=== PATIENT | male | born 1970 | race Caucasian/White ===

== ENCOUNTER 2017-09-18 20:42 | Observation (INO) | payer BC ==
[2017-09-18 23:02] LABS: Cardiac Risk 4.6 (Less than 4.5)
[2017-09-18 23:06] LABS: Troponin I Less than 0.010 ng/mL (< 0.028)
[2017-09-18 23:47] VITALS: BMI 37.2
[2017-09-19] MEDS ORDERED: Acetaminophen 325 MG TAB PO PRN ×2 (00:03→08:20)
[2017-09-19 01:46] LABS: Troponin I Less than 0.010 ng/mL (< 0.028)
[2017-09-19] MEDS ORDERED: Nitroglycerin 2% Ointment 1 INCH/1 GM Packet TOP SCH ×2 (06:00→14:00)
[2017-09-19] MEDS ORDERED: hydrALAZINE 20 MG/ML VIAL SLOW IVP PRN (08:20)
--- NOTE | 2017-09-19 08:35 | ULT ---
ABDOMINAL ULTRASOUND: HISTORY: Epigastric pain. FINDINGS: The liver demonstrates normal echogenicity without focal mass or intrahepatic ductal dilatation. The tail of the pancreas is not well visualized. The remainder of the pancreas is normal. There are mu ltiple mobile, nonshadowing echogenic foci in the gallbladder without gallbladder wall thickening or pericholecystic fluid. The common duct measures 6 mm in diameter. The right kidney is normal. No f ree fluid is seen in the Keyes pouch. IMPRESSION: Probable nonshadowing calculi in the gallbladder. POS: SIDDHARTHA
[2017-09-19] MEDS ORDERED: Aspirin 325 MG TAB PO SCH ×2 (09:00)
[2017-09-19] MEDS ORDERED: Lisinopril/Hydrochlorothiazide 10 mg/12.5 mg Tablet PO SCH (09:00)
[2017-09-19] MEDS ORDERED: Atorvastatin Calcium 10 MG TAB PO SCH (09:00)
[2017-09-19] MEDS ORDERED: Docusate 100 MG CAP PO SCH (09:00)
[2017-09-19] MEDS ORDERED: Enoxaparin Sodium 40 MG/0.4 ML SYRINGE SC SCH (09:00)
[2017-09-19] MEDS ORDERED: Pantoprazole 40 MG VIAL IVP SCH (09:00)
[2017-09-19] MEDS ORDERED: Famotidine 20 MG TAB PO SCH (09:00)
--- NOTE | 2017-09-19 09:30 | HP ---
PRIMARY CARE PHYSICIAN: Baljit Belle M.D. CHIEF COMPLAINT: Chest pain. HISTORY OF PRESENT ILLNESS: Mr. Reid is a pleasant 47-year-old gentleman that has a history of hy pertension and elevated cholesterol. He was in his usual state of health until several days prior to admission. The patient says he has been having chest pain off and on. He describes it as a pressur e or heaviness sensation and it is primarily in the center of his chest in the epigastric region. He says that yesterday it happened all day long. He says that he noticed it when he came home from [facility]. He says that he does not believe he did anything that triggered the pain. He says that he was bruce ving palpitations off and on and felt like his heart was racing and "did not feel right" and this is the main reason that he came into the ER for evaluation. He denies any nausea or vomiting. The pain did not radiate. There was no shortness of breath or diaphoresis. However, his father of a he art attack at age 43 and given this and the symptoms, this is the reason he came to the ER. Currentl y, his symptoms are resolved. REVIEW OF SYSTEMS: CONSTITUTIONAL: There have been no fevers, chills, no night sweats, no weight lo ss. HEENT: No headache, no dizziness, vision, dizziness, no visual changes, no sore throat, rhinorr hea, neck pain, no adenopathy. PULMONARY: No hemoptysis, no cough, no wheezing. CARDIOVASCULAR: A s the history of present illness with the addition of no PND, no orthopnea. No lower extremity edema . GASTROINTESTINAL: He denies any nausea, no vomiting, no reflux symptoms. No change in bowels. G ENITOURINARY: No urinary frequency, hematuria, no hesitancy. NEUROLOGIC: No focal weakness, numbne ss, no seizures. PSYCHIATRIC: No symptoms of anxiety or depression. SKIN AND INTEGUMENT: No skin changes. No rash. PAST MEDICAL HISTORY: Significant for hypertension, elevated cholesterol, and sleep apnea. PAST SURGICAL HISTORY: He has had a tonsillectomy. ALLERGIES: No known drug allergies. SOCIAL HISTORY: He is a nonsmoker. He occasionally drinks. He is . FAMILY HISTORY: Significant for his father who at 43 of heart disease, uncle had heart disease on paternal side. MEDICATIONS: Include simvastatin 20 mg daily, lisinopril/hydrochlorothiazide 10/12.5 once daily. PHYSICAL EXAMINATION: GENERAL: He is alert and oriented. He appears to be in no acute distress. VITAL SIGNS: Blood pressure was 134/66, heart rate 60, respiratory rate is 16, and temperature is 98 .5. HEENT: Pupils are equal, round, and reactive. Extraocular muscles are intact. His sclerae are anic teric. Throat no erythema, no exudates. NECK: No adenopathy, no bruits. LUNGS: Clear. No wheezing, no rales. CARDIOVASCULAR: He has a normal S1 and S2. I do not appreciate an S3 or S4. No murmurs, clicks or rubs. ABDOMEN: Obese, it is soft, it is nontender, nondistended. Positive for bowel sounds. There is no rebound or guarding. EXTREMITIES: There is no clubbing, cyanosis, no edema. NEUROLOGIC: Neurologically, the exam is nonfocal. LABORATORY DATA AND IMAGING DATA: Lab results were reviewed and essentially normal. Troponin, he bruce d two sets, which were negative. His EKG was sinus rhythm, the rate was [address] wave cat nges. ASSESSMENT AND PLAN: This is a 47-year-old gentleman who has a moderate risk for coronary artery dis ease. He is being placed in observation. He will be ruled out. We will get an exercise nuclear str ess test to help further stratify his risks for coronary artery disease. An abdominal ultrasound has already been performed to rule out gallstones as a potential cause and further recommendations will be based on the results of the aforementioned tests.
[2017-09-19 13:18] VITALS: BP 134/68; TEMP 98.4
--- NOTE | 2017-09-19 14:10 | NM ---
CARDIAC SPECT: HISTORY: A 47-year-old male with chest pain, hypertension, and dyslipidemia. TECHNIQUE: A myocardial perfusion scan was performed using the single isotope one day protocol with technetium 9 9m sestamibi, and 9 millicuries was injected intravenously for the rest exam, followed by 28 millicur ies for the stress study. Exercise stress was monitored and interpreted by Dr. Vivas. FINDINGS: Homogeneous tracer distribution is seen in the myocardial segments on stress and rest images without fixed or reversible defects. GATED SPECT LVEF: 54% WALL MOTION EXAM: Normal. IMPRESSION: Normal myocardial perfusion scan. POS: SIDDHARTHA
--- NOTE | 2017-09-19 15:56 | DIS ---
DATE OF ADMISSION: 09/19/2017 DATE OF DISCHARGE: 09/19/2017 PRIMARY CARE PHYSICIAN: Dr. Belle DISCHARGE DISPOSITION: Home. DISCHARGE DIAGNOSES: 1. Biliary colic. 2. Hypertension. 3. Elevated cholesterol. DISCHARGE MEDICATIONS: Include simvastatin 20 mg daily, multivitamin once a day, lisinopril/hydrochl orothiazide 10/12.5 daily. PROCEDURES DONE DURING ADMISSION: The patient had a nuclear stress test which was negative for any r eversible ischemia and in fact it was considered normal perfusion scan, had an abdominal ultrasound i n which there was some non-shadowing stones in the gallbladder, but no pericolic fluid or inflammatio n. CODE STATUS: FULL CODE. ALLERGIES: No known drug allergies. HOSPITAL COURSE: Mr. Reid is a pleasant 47-year-old gentleman who presented to the emergency room with epigastric pain, which was nonradiating and more or less constant. The patient has a family hi story of coronary artery disease, so he was concerned that this could represent heart disease. He we nt to an outside ER where he was transferred to our facility. He was placed in observation. He was ruled out. An abdominal ultrasound was obtained as well as a nuclear stress test. The stress test w as negative; however, the ultrasound did demonstrate multiple stones in the gallbladder. He has a fa lali history of gallstones as well. He is currently asymptomatic from that. The symptoms have geovany d. There was no fever and no elevation in his white blood cell count, and for this reason, he will b e discharged home and referred to his primary care physician to see about outpatient General Surgery referral for possible elective cholecystectomy. In the meantime, he was instructed on a low fat diet and also to discontinue all tobacco products.
[2017-09-20] MEDS ORDERED: FLU VACC QS2017-18 36 mo. & older 0.5 ML SYRINGE IM ONE (09:00)
== END 2017-09-19 15:50 | disposition home or self-care (01) ==
LOC: ERS 20:42 → 2SW 22:18
PROVIDERS: ADMIT Internal Medicine Infectious Disease; ATTEND Internal Medicine Infectious Disease
DX: K80.50 Calculus of bile duct without cholangitis or cholecystitis without obstruction (principal); I10 Essential (primary) hypertension; E78.00 Pure hypercholesterolemia, unspecified; G47.30 Sleep apnea, unspecified; Z79.899 Other long term (current) drug therapy; Z90.89 Acquired absence of other organs; Z82.49 Family history of ischemic heart disease and other diseases of the circulatory system
CPT/HCPCS: 36415; 76705; 78452; 80061; 84484; 90471; 90682; 93005; 93017; 99406; A9500; G0008; G0378; J1650; Q2036